=== PATIENT | female | born 1965 | race Caucasian/White ===

== ENCOUNTER 2020-07-23 11:44 | Emergency (ER) | payer SELFPAY ==
--- NOTE | 2020-07-23 11:46 | PDOC ---
History of Present Illness - General Chief Complaint: Eye Problem Stated Complaint: REDNESS, SWELLING BOTH EYES Time Seen by Provider: 07/23/20 11:45 - History of Present Illness Initial Comments: 07/23/20 12:02 55 year old woman with poor medical care who presents with 4 days of bilateral eye redness and itching that worsened since last night. The patient reports that bacterial conjunctivitis was going around her house and so she was using cipro drops before any symptoms. She had redness and itching for the past 4 days with out any discharge, changes in vision, or pain with eye movement. ROS GENERAL/CONSTITUTIONAL: No fever or chills. No weakness. HEAD, EYES, EARS, NOSE AND THROAT: No change in vision. No ear pain or discharge. No sore throat. CARDIOVASCULAR: No chest pain or shortness of breath RESPIRATORY: No cough, wheezing, or hemoptysis. GASTROINTESTINAL: No nausea, vomiting, diarrhea or constipation. GENITOURINARY: No dysuria, frequency, or change in urination. MUSCULOSKELETAL: No joint or muscle swelling or pain. No neck or back pain. SKIN: No rash NEUROLOGIC: No headache, vertigo, loss of consciousness, or change in strength/sensation. ENDOCRINE: No increased thirst. No abnormal weight change HEMATOLOGIC/LYMPHATIC: No anemia, easy bleeding, or history of blood clots. ALLERGIC/IMMUNOLOGIC: No hives or skin allergy. PE GENERAL: Awake, alert, and fully oriented, in no acute distress HEAD: No signs of trauma, normocephalic, atraumatic EYES: PERRLA, EOMI, vision at baseline on snellens, bilateral conjunctiva with L > R erythema and edema of the eyelid, + chemosis, negative proptosis ENT: nares patent, oropharynx clear without exudates. Moist mucosa NECK: Normal ROM, supple LUNGS: No distress, speaks full sentences, clear to auscultation bilaterally HEART: Regular rate and rhythm, normal S1 and S2, no murmurs, rubs or gallops, peripheral pulses normal and equal bilaterally. ABDOMEN: Soft, nontender No guarding, no rebound. No masses EXTREMITIES : Normal inspection, Normal range of motion, no edema. No clubbing or cyanosis. NEUROLOGICAL: Cranial nerves II through XII grossly intact. Normal speech, normal gait, no focal sensorimotor deficits SKIN: Warm, Dry, normal turgor, no rashes or lesions noted Assessment and Plan 55 year old woman with poor medical care who presents with 4 days of bilateral eye redness and itching that worsened since last night. Consider preseptal vs orbital cellulitis, although less liekly as patient with EOMI proptosis or visual changes. cbc, cmp, CT orbits labs wnl CT orbits with preseptal cellulitis , initial read reported possible air in traorbitally discussed case with ophtho Dr. Chase who will see patient outpt Patient instructed to stop eye drops and take oral abx d/c with oupt pcp, ophtho f.u strict return precautions. Dayana Alvarado, PGY3 Emergency Medicine Past History - Medical History Allergies/Adverse Reactions: Allergies Allergy/AdvReac Type Severity Reaction Status Date / Time No Known Allergies Allergy Verified 07/23/20 11:46 Home Medications: Ambulatory Orders Esomeprazole Mag Trihydrate [Nexium] 40 mg PO DAILY 08/19/14 Amoxicillin/Potassium Clav [Augmentin 875-125 Tablet] 1 each PO BID 7 Days #14 tablet 07/23/20 Clindamycin HCl [Cleocin HCl] 450 mg PO TID 7 Days #21 capsule 07/23/20 GI Disorders: Yes (GERD) - Psycho-Social/Smoking History Smoking History: Current every day smoker Number of Cigarettes Smoked Daily: 9 'Breaking Loose' booklet given: 08/19/14 ED Treatment Course - LABORATORY CBC & Chemistry Diagram: 07/23/20 12:25 07/23/20 12:23 Discharge - Discharge Information Problems reviewed: Yes Clinical Impression/Diagnosis: Preseptal cellulitis Condition: Stable Disposition: HOME - Additional Discharge Information Prescriptions: Amoxicillin/Potassium Clav [Augmentin 875-125 Tablet] 1 each PO BID 7 Days #14 tablet Clindamycin HCl [Cleocin HCl] 450 mg PO TID 7 Days #21 capsule - Follow up/Referral - Patient Discharge Instructions Additional Instructions: You were seen in the ER for complaints of an eye infection Your labwork was within normal Your CT showed a preseptal cellulitis and possible air intraorbitally You will need to see Ophthalmology within 1 week. Please call and make and appointment Dr. Verónica Chase MD Doctor in [place], [place] Address: [address] [place] [address] Return to the ER if you develop worsening symptoms, pain with eye movement, changes in vision or any other concerning symptoms. - Post Discharge Activity
[2020-07-23 11:56] VITALS: TEMP 98.8; BMI 31.1
[2020-07-23] MEDS ORDERED: TETRACAINE 0.5% HCL 0.6ML DROPPER.BOTTLE OU ONE (12:07)
[2020-07-23] MEDS ORDERED: FLUORESCEIN NA 1 EA STRIP OU ONE (12:07)
--- NOTE | 2020-07-23 12:28 | PDOC ---
Attending Attestation - Resident Resident Name: Dayana Alvarado - ED Attending Attestation I have performed the following: I have examined & evaluated the patient, The case was reviewed & discussed with the resident, I agree w/resident's findings & plan, Exceptions are as noted - HPI HPI: 07/23/20 12:21 55 yo F p/w b/l eye itching and redness x4 days. States many members of her family have had bacterial conjunctivitis and she has been self medicating with cipro drops and also took some of her daugher's amoxicillin tabs without relief. States woke up today with swelling under L eye which prompted her visit. No headache. No changes in vision. No pain with eye movement. Reports some crusting of her eyes. No other complaints. - Physicial Exam PE: 07/23/20 12:24 General: non-toxic appearing HEENT: EOMI, PERRL, visual acuity grossly intact, no nystagmus, no pain with eye movement, +b/l injected conjunctiva with crusting on L eyelashes, +mild periorbital erythema on L with swelling just inferior to L eye without ttp, negative fluorescene exam - Medical Decision Making 07/23/20 12:25 55 yo F with likely b/l conjunctivitis, no pain with eye movement and no syst emic signs of infection so less likely orbital cellulitis however possible preseptal cellulitis. Plan: -labs -CT orbits -reassess This clinical encounter is taking place during a federal and state health care emergency attributable to the novel [place] Virus pandemic. The [place] of the Department of Health and Human Services has declared, pursuant to the Public Health Service Act 319F-3 (42 U.S.C. 247d-6d), that a covered persons activities related to medical countermeasures against COVID-19 will be immune from liability under Federal and State law. 07/23/20 16:47 CT without evidence of orbital cellulitis. More likely preseptal cellulitis. Will d/c with rx for clinda and augmentin and pt to f/u with optho. Return precautions given. Discharge - Discharge Information Problems reviewed: Yes Clinical Impression/Diagnosis: Preseptal cellulitis Condition: Stable - Follow up/Referral - Patient Discharge Instructions - Post Discharge Activity
[2020-07-23 12:40] LABS: BASO % 0.5 % (0-2.0); EOS % 0.8 % (0-4.5); HEMATOCRIT 46.9 % (32.4-45.2); HEMOGLOBIN 15.9 GM/dl (10.7-15.3); LYMPH % 17.2 % (8-40); MCH 32.1 pg (25.7-33.7); MCHC 33.8 g/dl (32.0-36.0); MEAN CELL VOLUME 95.1 fl (80-96); MEAN PLT VOLUME 7.8 fl (7.5-11.1); MONO % 7.3 % (3.8-10.2); NEUT % 74.2 % (42.8-82.8); PLATELET COUNT 288 K/MM3 (134-434); RBC 4.93 M/mm3 (3.60-5.2); WHITE BLOOD COUNT 7.3 K/mm3 (4.0-10.8)
[2020-07-23 12:48] LABS: ALBUMIN 4.5 g/dl (3.4-5.0); BILIRUBIN,TOTAL 0.6 mg/dl (0.2-1); CALCIUM 9.1 mg/dl (8.5-10); CREATININE 0.5 mg/dl (0.55-1.3); POTASSIUM 4.3 mmol/L (3.5-5.1); TOT PROT 7.5 g/dl (6.4-8.2)
[2020-07-23 16:13] VITALS: BP 169/77; PULSE 85
[2020-07-23] MEDS ORDERED: CLINDAMYCIN HCL 150 MG CAPSULE (FP) PO ONE (16:49)
[2020-07-23] MEDS ORDERED: CLINDAMYCIN HCL 150 MG CAPSULE (FP) ONE (16:51)
[2020-07-23] MEDS ORDERED: CLINDAMYCIN PALMITATE HCL ORAL SOLUTION 75 MG/5 ML BOTTLE PO ONE (17:12)
[2020-07-23] MEDS ORDERED: AMOX TR/POT CLAV 875MG/125MG TABLETS (FP) PO ONE (17:12)
[2020-07-23] MEDS ORDERED: AMOX TR/POT CLAV 875MG/125MG TABLETS (FP) ONE (17:16)
== END 2020-07-23 17:25 | disposition home or self-care (01) ==
LOC: FER 11:44
DX: L03.213 Periorbital cellulitis (principal)
CPT/HCPCS: 36415; 70481-TC; 80053; 85025; 99285-25; Q9967

== ENCOUNTER 2021-05-06 13:44 | Emergency (ER) | payer OTHER ==
[2021-05-06 14:13] VITALS: TEMP 98.2; BMI 30.2
[2021-05-06] MEDS ORDERED: amLODIPine BESYLATE 5 MG TABLET (FP) PO ONE (15:46)
[2021-05-06] MEDS ORDERED: amLODIPine BESYLATE 5 MG TABLET (FP) ONE (15:54)
[2021-05-06 16:47] VITALS: BP 190/85; PULSE 84
== END 2021-05-06 16:53 | disposition home or self-care (01) ==
LOC: FER 13:44
DX: S60.942A Unspecified superficial injury of right middle finger, initial encounter (principal)
CPT/HCPCS: 73140-TC-RT-FY; 99283-25

== ENCOUNTER 2024-05-06 10:15 | Emergency (ER) | payer OTHER ==
[2024-05-06 10:29] VITALS: BP 143/65; PULSE 96; RESP 18; TEMP 98.3; BMI 25.6
== END 2024-05-06 12:20 | disposition home or self-care (01) ==
LOC: FER 10:15
DX: S40.022A Contusion of left upper arm, initial encounter (principal); S30.0XXA Contusion of lower back and pelvis, initial encounter; S09.90XA Unspecified injury of head, initial encounter; M54.2 Cervicalgia; W10.8XXA Fall (on) (from) other stairs and steps, initial encounter
CPT/HCPCS: 70450-TC; 72125-TC; 72170-TC-FY; 72220-TC-FY; 99284-25